=== PATIENT | male | born 1950 | race Caucasian/White ===

== ENCOUNTER 2025-01-09 16:21 | Emergency (ER) | payer MEDICARE ==
[~2025-01-09] VITALS: Ht 182.9 cm; Wt 90.7 kg
[2025-01-09] MEDS: IV NORMAL SALINE 1000 ML BAG IV ONE (17:04)
[2025-01-09 17:19] LABS: PLATELET COUNT (AUTO) 174 K/uL (152-348); RED BLOOD CELL COUNT(AUTO) 3.66 MIL/uL (4.06-5.63); RED CELL DISTRIBUTION WIDTH 14.9 % (12.1-16.2); WHITE BLOOD COUNT (AUTO) 5.6 K/uL (3.6-10.2)
[2025-01-09 17:27] LABS: CREATININE 2.6 mg/dL (0.6-1.3); SODIUM SERUM 148 mmol/L (136-145); UREA NITROGEN, BLOOD 32 mg/dL (7-18)
[2025-01-09 17:33] LABS: ASPARTATE AMINOTRANSFERASE 5 U/L (15-37); TOTAL PROTEIN, SERUM 6.8 g/dL (6.4-8.2)
[2025-01-09 20:14] VITALS: BP 148/93; O2SAT 96
== END 2025-01-09 23:05 | disposition hospice, inpatient (51) ==
LOC: ER 16:25
DX: R55 Syncope and collapse (principal); E86.0 Dehydration; E87.0 Hyperosmolality and hypernatremia; E88.09 Other disorders of plasma-protein metabolism, not elsewhere classified; R07.9 Chest pain, unspecified; I10 Essential (primary) hypertension; Z87.442 Personal history of urinary calculi; Z90.49 Acquired absence of other specified parts of digestive tract; Z87.19 Personal history of other diseases of the digestive system; Z60.2 Problems related to living alone
CPT/HCPCS: 99284; 96360; 96361; 70450; 71045; 80076; 80048; 82962; 83880; 85025; 84484; 36415; 93005; J7040; A4606; A4663